=== PATIENT | male | born 1935 | race Two or more races ===

== ENCOUNTER 2016-11-06 07:33 | Day surgery (SDC) | payer MEDICARE, OTHER ==
[~2016-11-06] VITALS: Ht 170.2 cm; Wt 82.5 kg
[~2016-11-06 07:33] MED LIST: AMLODIPINE5 M1 PO; ASPIR 8181 MG PO; FLO4 PO; GLIPIZIDE5 MG; METFORMIN500 M1 PO; RANITIDINE HCL150 M1 PO
[2016-11-06 08:27] VITALS: BP 147/76
[2016-11-06 11:11] VITALS: BP 132/65
== END 2016-11-06 11:40 | disposition home or self-care (01) ==
LOC: GI 07:33 → OR 10:30 → GI 11:40
PROVIDERS: Internal Medicine Gastroenterology
PROC: 0DBG8ZZ Excision of Left Large Intestine, Via Natural or Artificial Opening Endoscopic (ICD-10-PCS; principal; 2016-11-06 10:30)
DX: Z12.11 Encounter for screening for malignant neoplasm of colon (principal); D12.2 Benign neoplasm of ascending colon; K57.30 Diverticulosis of large intestine without perforation or abscess without bleeding; I10 Essential (primary) hypertension; E11.9 Type 2 diabetes mellitus without complications; M19.90 Unspecified osteoarthritis, unspecified site; Z68.27 Body mass index [BMI] 27.0-27.9, adult
CPT/HCPCS: 45378; J1200; J1610; J2250; J2310; J3010; J3490